=== PATIENT | female | born 1970 | race Caucasian/White ===

== ENCOUNTER 2021-01-15 22:48 | Emergency (ER) | payer BC ==
[~2021-01-15] VITALS: Ht 162.6 cm; Wt 52.2 kg
--- NOTE | 2021-01-15 23:07 | NUR ---
BIBS C/O LEFT KNEE PAIN S/P MECH FALL OFF CURB. PATIENT DENIES HEAD TRUAMA OR KO. PATIENT ALERT AND ORIENTED X4. BROUGHT IN BY WHEELCHAIR UNABLE TO PUT PRESSURE ON LEFT KNEE DUE TO PAIN.
[2021-01-15] MEDS ORDERED: IBUPROFEN 400 MG TABLET ONE (23:16)
[2021-01-15 23:27] VITALS: BP 112/70
[2021-01-15] MEDS ORDERED: IBUPROFEN 400 MG TABLET PO ONE (23:30)
== END 2021-01-16 00:11 | disposition home or self-care (01) ==
LOC: ER 22:55
DX: S83.92XA Sprain of unspecified site of left knee, initial encounter (principal); W19.XXXA Unspecified fall, initial encounter; Y93.89 Activity, other specified; Y92.89 Other specified places as the place of occurrence of the external cause; Y99.8 Other external cause status
CPT/HCPCS: 73564-TC